=== PATIENT | female | born 2000 | race Caucasian/White ===

== ENCOUNTER → 2025-04-19 | Outpatient (CLI) | payer SELFPAY ==
[2025-04-19 13:42] LABS: Absolute Lymphocyte Count 1.46 X10^3/uL (0.83-4.51); Absolute Neutrophil Count 4.7 X10^3/uL (2.0-7.7); Basophil# 0.04 X10^3/uL; Basophil% 0.6 % (0-1); Eosinophil# 0.09 X10^3/uL; Eosinophils% 1.3 % (0-5); Hematocrit 31.6 % (37-47); Hemoglobin 9.1 g/dL (12.0-15.0); Lymphocyte # 1.46 X10^3/ul (0.83-4.51); Lymphocyte % 21.2 % (19-41); Mean Corp Hgb Conc 28.8 g/dL (32-36); Mean Corpuscular Hgb 18.7 pg (27.0-32.0); Mean Platelet Vol. 9.7 fl (6.2-12.0); Monocyte# 0.59 X10^3/uL; Monocyte% 8.6 % (0-10); NRBC Flagged by Analyzer 0 % (0-5); Neutrophil # 4.68 X10^3/uL (2.7-7.7); Platelet Count 292 K/mm3 (150-450); RBC Distribution Width CV 17.6 % (11.6-14.6); RBC Distribution Width SD 40.6 fl (35.1-43.9); Red Blood Count 4.86 M/mm3 (4.2-5.4); White Blood Count 6.9 K/mm3 (4.4-11.0)
[2025-04-20 12:03] LABS: ALB/GLOB Ratio 1.1 RATIO (0.9-2.4); AST(SGOT) 14 U/L (<=31); Alanine Aminotransfer ALT/SGPT 14 U/L (<=34); Albumin, Serum 4.4 g/dL (3.5-5.0); Alkaline Phosphatase 80 U/L (35-104); Anion Gap 13 (5-15); BUN 9 mg/dL (4-19); BUN/Creat Ratio 13.9 RATIO (10-20); Calcium,Total 9.5 mg/dL (7.6-11.0); Carbon Dioxide 20.9 mmol/L (21.0-32.0); Chloride 104 mmol/L (98-108); Creatinine, Serum 0.68 mg/dL (0.70-1.20); EST Glomerular Filtration Rate 124 (>60); Ferritin 4 ng/mL (22-378); Globulin 3.9 g/dL (2.2-4.2); Glucose 92 mg/dL (70-99); Magnesium 2.1 mg/dL (1.5-2.2); Potassium 4.4 mmol/L (3.3-5.1); Protein, Total 8.2 g/dL (5.9-8.4); Sodium Level 138 mmol/L (133-145); Vitamin B12 224 pg/mL (180-914); Vitamin D,25 Hydroxy 17.3 ng/mL (30-100)
[2025-04-21 15:08] LABS: Endomysial Antibody IgA Positive (Negative); Immunoglobulin A 387 mg/dL (87-352); t-Transglutaminase IgA 48 U/mL (0-3)
== END | disposition home or self-care (01) ==
LOC: LAB 13:02
PROVIDERS: PCP Family Medicine; Referring Provider Family Medicine; Visit Provider Family Medicine
DX: F32.9 Major depressive disorder, single episode, unspecified (principal); R14.0 Abdominal distension (gaseous); Z72.820 Sleep deprivation
CPT/HCPCS: 36415; 80053; 82306; 82607; 82728; 82784; 83516; 83735; 84443; 85025; 86255

== ENCOUNTER 2025-05-26 13:11 | Day surgery (SDC) | payer MEDICAID, SELFPAY ==
--- NOTE | 2025-05-25 12:59 | PAT.ANE_ITS ---
Pre-Assessment Diagnosis/Proposed Procedure Planned Operative Procedure(s): EGD Anesthesia History Anesthesia History - dispatcher street department: Anesthesia History - dispatcher street department Hx Hospitalization No 05/25/25 09:18 Any Problems With Anesthesia No 05/25/25 09:18 Cholinesterase deficiency No 05/25/25 09:18 You/Your Family Experience No 05/25/25 09:18 fever (hyperthermia) with Relationship Recent Exposure to Contagious Disease Does patient have nerve No 05/25/25 09:18 stimulator Patient instructed to have device shut off --Does patient have Pacemaker or ICD? When Was Last Pacemaker Check QUESTION #4 FULL TEXT: You/Your Family Experience fever (hyperthermia) with Anesthesia Last Oral Intake Last Oral intake: Last Oral Intake NPO since Meds taken in AM with sips of water? Meds patient instructed to take am of surgery PONV PONV - dispatcher street department: PONV - dispatcher street department Female Yes 05/25/25 09:18 HX of Motion Sickness No 05/25/25 09:18 HX of N/V After Surgery No 05/25/25 09:18 Non-Smoker Yes 05/25/25 09:18 Duration of Surgery greater No 05/25/25 09:18 than 60 minutes Number of Risk Factors 2 05/25/25 09:18 PONV Score Moderate Risk 05/25/25 09:18 Height & Weight Height & Weight: Anesthesia: Height & Weight Height 5 ft 4 in 05/24/25 14:07 Respiratory Assessment Respiratory Assessment - dispatcher street department: Respiratory Tract Infection Hx - dispatcher street department Hx Respiratory Tract Infection No 05/25/25 09:18 STOP Sleep Apnea STOP Sleep Apnea - dispatcher street department: STOP Sleep Apnea - dispatcher street department Hx Hypertension No 05/25/25 09:18 Hx Sleep Apnea No 05/25/25 09:18 CPAP BIPAP Do you snore loudly (louder No 05/25/25 09:18 than talking or can be heard Do you often feel tired/ No 05/25/25 09:18 fatigued/ sleepy during daytime? Has anyone observed you stop No 05/25/25 09:18 breathing during sleep? STOP Results Negative 05/25/25 09:18 QUESTION #5 FULL TEXT : Do you snore loudly (louder than talking or can be heard through closed doors)? 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 Specify any problems Hx of Preganancy in last 3 N/A 05/25/25 09:18 Months Nurse Filling Out Transfusion NBUCHER 05/25/25 09:18 & Questions: Date: 05/25/25 05/25/25 09:18 Time: 09:19 05/25/25 09:18 Patient unable to answer at this time (ie. confused, unrespo /Reproduction History /Reproductive History - dispatcher street department: /Reproductive Hx- dispatcher street department Hx Now No 05/25/25 09:18 Gestational Age (in weeks): EDC: Hx Hx Para Hx Section SAB No 05/25/25 09:18 PFS Medical History (Updated 05/25/25 @ 09:24 by Sarai Jon) Anxiety Dietary restriction Heartburn Non-smoker Emotional problems Broken arm Home Medications ?Medication ?Instructions ?Recorded ?Last Taken ?Type ascorbate calcium (vitamin C) 500 500 mg PO BID Unknown History mg tablet cholecalciferol (vitamin D3) 125 125 mcg PO QDAY 05/24 Unknown History mcg (5,000 unit) capsule (Dialyvite Vitamin D) ferrous sulfate 325 mg (65 mg 325 mg PO BID 05/24/25 U nknown History iron) tablet,delayed release omeprazole 20 mg capsule,delayed 20 mg PO QDAY 5 Unknown History release polyethylene glycol 3350 17 4 g PO ONCE PRN constipati on 05/24/25 Unknown History gram/dose oral powder (Miralax) sertraline 50 mg tablet 50 mg PO QDAY 05/24/25 Unkno wn History Allergy/AdvReac Type Severity Reaction Status Date / Time No Known Allergies Allergy Verified 05/25/25 09:16 Family History Father Arthritis Cancer Mother Depression Grandmother Diabetes Heart disease Uncle Diabetes Social History Smoking Status: Never smoker alcohol intake: never substance use type: does not use Recommendation Anesthesia Recommendation Anesthesia recommendation: OPTIMIZED for anesthesia (Hemoglobin from April 19, 2025 was 9.1. Patient has a history of anemia. This should be adequate for this surgery. If patient saturations are low or patient is short of breath they may consider redoing her hemoglobin.)
[2025-05-26] VITALS (7 sets, daily range): BP systolic 99–126; BP diastolic 60–84; PULSE 78–106; RESP 16–18; TEMP 36.1–37.3; O2SAT 97–100; BMI 29.1
[2025-05-26 13:48] LABS: Internal QC Validated? YES +Cl - CLEAR BKGD; Pregnancy, Urine Negative Negative
--- NOTE | 2025-05-26 13:56 | PCM.HP.STD ---
HPI - General General Date of Admission: 05/26/25 Date of Service: 05/26/25 Chief Complaint: Celiac disease HPI Narrative MALCOLM DIANA, is a 24 F who presents with the Chief Complaint: possible celiac disease LABS 04/21/2025 Total IgA 387 TTG IgA elevated at 48 Endomesial IgA positive Hemoglobin 9.1 Transaminases normal TSH normal B12 low normal at 224 Ferritin low 4 Vitamin D low 17.3 - Labs: TTG IgA elevated to 48 with a total IgA of 387, indicating celiac disease. - Labs: Anemia noted, vitamin D and B12 levels low. - she has been on a GFD for the past month - epigastric abdominal pain, sudden onset, thought this was stress related - diarrhea - denies any weight loss - denies any emesis - she c/o nausea since starting Fe - menstrual cycles regular - denies any night sweats - c/o fatigue - denies any skin rashes or lesions - reports her bowels alternate between diarrhea and abdominal pain - she is on Omeprazole 20mg once daily for past month and this has resolved the abdominal pain/HB - she started Vitamin D - Gastrointestinal: Reports intermittent abdominal pain, diarrhea, and constipation. Denies vomiting. - General: Reports fatigue. Denies night sweats. - Dermatological: Denies skin rashes or lesions. The patient is a 24-year-old female presenting with gastrointestinal symptoms and a suspected diagnosis of celiac disease. In early March, the patient experienced significant stress, leading to concerns about a possible ulcer due to anxiety and abdominal pain. The abdominal pain was localized and accompanied by diarrhea, which prompted a celiac panel test. The patient reports fluctuating bowel habits, including episodes of diarrhea and constipation. She has been on omeprazole for abdominal pain and heartburn, currently on her third course, which has provided some relief. The patient also reports nausea, attributed to iron supplementation, and has experienced weight fluctuations. The patient has a family history of celiac disease in extended relatives but not in immediate family members. She has been attempting a gluten-free diet but has not been strictly adhering to it due to pending diagnostic confirmation. The patient is anemic, with low vitamin D and B12 levels, consistent with malabsorption associated with celiac disease. Attestation: Documentation on this patient encounter was supported using ambient scribe technology/ voice AI technology. The patient consented to recording for the purpose of documenting the encounter. Provider reviewed content of the generated note prior to signature. [facility] Medical History Anxiety Dietary restriction Heartburn Non-smoker Emotional problems Broken arm Home Medications ?Medication ?Instructions ?Recorded ?Last Taken ?Type ascorbate calcium (vitamin C) 500 500 mg PO BID 05/24/25 05/24/25 History mg tablet cholecalciferol (vitamin D3) 125 125 mcg PO QDAY 05/24/25 05/25/25 History mcg (5,000 unit) capsule (Dialyvite Vitamin D) ferrous sulfate 325 mg (65 mg 325 mg PO BID 05/24/25 05/24/25 History iron) tablet,delayed release omeprazole 20 mg capsule,delayed 20 mg PO QDAY 05/24/25 05/26/25 History release polyethylene glycol 3350 17 4 g PO ONCE PRN constipation 05/24/25 Unknown History gram/dose oral powder (Miralax) sertraline 50 mg tablet 50 mg PO QDAY 05/24/25 05/25/25 History Allergy/AdvReac Type Severity Reaction Status Date / Time No Known Allergies Allergy Verified 05/26/25 13:47 Family History Father Arthritis Cancer Mother Depression Grandmother Diabetes Heart disease Uncle Diabetes Social History Smoking Status: Never smoker alcohol intake: never substance use type: does not use ROS Constitutional Constitutional: Denies fatigue, fever(s), poor appetite, weight gain or weight loss Gastrointestinal Gastrointestinal: Denies belching, bloating, change in bowel habits, change in stool character, chewing difficulty, coffee ground emesis, constipation, cramping, diarrhea, dyspepsia, dysphagia, early satiety, excessive flatus, fecal incontinence, heartburn, hematemesis, hematochezia, hemorrhoids, loose stools, melena, nausea, odynophagia, rectal bleeding, tenesmus, vomiting or weight changes Vital Signs Vital Signs Vital Signs: 05/26/25 13:48 05/26/25 13:48 Temperature 97.0 F L Temperature Source Temporal Pulse Rate 78 Respiratory Rate 18 Respiratory Pattern Normal Blood Pressure 126/84 H Blood Pressure Mean 98 Blood Pressure Source Monitor Blood Pressure Position Semi-Fowlers Blood Pressure Location Right Arm Pulse Ox 100 Oxygen Delivery Method Room Air Weight Weight: 169 lb 12.095 oz Body Mass Index (BMI) 29.1 Physical Exam Const alert, oriented x3, no apparent distress and healthy appearing General Appearance: cooperative GI normal to inspection, nondistended, normoactive bowel sounds, soft to palpation, non-tender and non-distended Percussion: normal to percussion Rectal Exam: deferred Results Lab / Micro Data Labs: Laboratory Results - last 24 hr 05/26/25 13:30: Urine Test Negative Assessment & Plan Assessment/Plan (1) Celiac disease: (2) Gastritis: (3) Anemia: PLAN: Thought Process: normal Assessment and Plan Assessment and Plan (1) Celiac disease: Status: Acute Comment: TTG IgA 48 - 3x ULN and consistent with celiac disease Plan: The patient is diagnosed with celiac disease based on elevated TTG IgA levels and symptoms of malabsorption. A gluten-free diet is recommended to manage symptoms and improve nutrient absorption. An upper endoscopy is planned to confirm the diagnosis through a duodenal biopsy. (2) Anemia: Status: Acute Plan: The anemia is likely secondary to malabsorption from celiac disease. Iron supplementation is being taken to address the anemia. (3) Vitamin D deficiency: Status: Acute Plan: The patient is advised to continue vitamin D supplementation to address the deficiency. The deficiency is likely due to malabsorption associated with celiac disease. Orders: Orders EGD 05/26/25 K90.0 - Celiac disease Plan The patient is a 24-year-old female with a history of gastrointestinal symptoms presenting with suspected celiac disease. The elevated TTG IgA and low vitamin levels suggest malabsorption consistent with celiac disease. The patient has been experiencing abdominal pain, diarrhea, and constipation, which are common symptoms of celiac disease. The anemia and vitamin deficiencies are likely due to malabsorption, a common complication of untreated celiac disease. The patient has been on omeprazole for heartburn and abdominal pain, which has provided some relief. A gluten-free diet is recommended to manage celiac disease and improve nutrient absorption. Patient Instructions: - Follow a gluten-free diet to manage celiac disease and improve nutrient absorption. - Continue taking vitamin D supplements as prescribed. - Schedule an upper endoscopy for further evaluation of celiac disease. - Monitor symptoms and report any significant changes to your healthcare provider.
[2025-05-26] MEDS: Lactated Ringers 1,000 ML 15 ML IV (13:57)
--- NOTE | 2025-05-26 14:15 | EGD_PTH ---
PATIENT: MALCOLM DIANA LOC: EN U#:[id number] AGE/SX: 24/F ROOM: RE05/26/[address]: Dr. Mau Nettles DO : 2000 BED: DIS: 05/26/2025 SPEC #: [id number] RECD: 05/26/25 15:39 STATUS: JOYCE GEORGIANA #: [id number] ELANA: 05/26/25 14:[address]: Mau Nettles DEPT: SURGICAL PATHOLOGY RECD BY: Praveen Segundo ENTERED: 05/26/25 15:54 SP TYPE: EGD BIOPSY KASHIF DR: Dr. Santos Farah MD Tissues: A - Duodenum, NOS B - Gastric mucous membrane Procedures: Immunohistochemical Stains Surgery Specimen Level IV HEADER OPERATION: EGD and biopsy PRE-OP DIAGNOSIS: Possible Celiac disease, anemia, gastritis TISSUE SUBMITTED: A- Duodenum biopsy, B- Gastric body biopsy MICROSCOPIC DIAGNOSIS A. Duodenum, biopsy: - Mild villous blunting with increased Intraepithelial lymphocytes - see note. Note: This pattern of injury is etiologically nonspecific and the differential diagnosis includes sensitivity to gluten and non-gluten proteins, small intestinal bacterial overgrowth, stasis related changes, infection, protein calorie malnutrition, tropical sprue, and medication injury (NSAIDs, Olmesartan / Benicar, Mycophenolic acid, Idelalisib, for example). If celiac disease is a clinical concern, additional clinical studies, such as tTG-IgA, are recommended. B. Gastric body, biopsy: - Chronic gastritis. - IHC negative for H.pylori organisms. MICROSCOPIC DESCRIPTION Slides are reviewed. All matched controls reacted appropriately. These tests were developed and their performance characteristics determined by [facility]. They may not have been cleared or approved by the [place]. Food and Drug Administration. The FDA has determined that such clearance or approval is not necessary. The above immunohistochemical/dualISH markers are viewed by the Pathologist. GROSS DESCRIPTION A. Received in fixative is one container labeled with the patient's name and designated Duodenum biopsy. The specimen consists of multiple irregular fragments of light gasca soft tissue that in aggregate measure 0.8 x 0.5 x 0.2 cm. The specimen is totally submitted in one cassette. B. Received in fixative is one container labeled with the patient's name and designated Gastric body biopsy. The specimen consists of one irregular fragment of light gasca soft tissue that measures 0.7 cm. The specimen is totally submitted in one cassette. [place]/mr 05/26/2025 CPT:84299q8,14050
--- NOTE | 2025-05-26 14:23 | PRE.ANES_ITS ---
ASA Classification* ASA Classification ASA Classification: 2 Assessment & Plan Anesthesia* Anesthesia Assessment Anesthesia Assessment: Discussed sedation and/or anesthesia options, risks, benefits, and alternatives with patient/parents/legal guardian/POA. Questions invited. The patient/parents/legal guardian/POA seems to understand and agrees to proceed with anesthesia plan. Reviewed the physical assessment, medical history, allergy history and patient home medications list prior to surgery/procedure/anesthetic and documented any changes. Performed airway and anesthesia risk assessments. Anesthesia Type Anesthesia Type: MAC History Source History Obtained from:: Patient and Chart Anesthesia Focused Assessment* Temperature: 97.0 F Pulse Rate: 78 Blood Pressure: 126/84 Respiratory Rate: 18 Pulse Ox: 100 Oxygen Delivery Method: Room Air Airway Assessment Mouth opens: >3 cm Mallampati Score: II Teeth Condition: Intact Neck Range of motion (ROM): Full ROM Labs Anesthesia Preop lab: CBC WBC 6.9 K/mm3 (4.4-11.0) 04/19/25 13:11 04/19/25 RBC 4.86 M/mm3 (4.2-5.4) 04/19/25 13:11 04/19/25 Hgb 9.1 g/dL (12.0-15.0) L 04/19/25 13:11 04/19/25 Hct 31.6 % (37-47) L 04/19/25 13:11 04/19/25 Plt Count 292 K/mm3 (150-450) 04/19/25 13:11 04/19/25 CHEMISTRY Potassium 4.4 mmol/L (3.3-5.1) 04/19/25 13:11 04/19/25 Sodium 138 mmol/L (133-145) 04/19/25 13:11 04/19/25 Magnesium 2.1 mg/dL (1.5-2.2) 04/19/25 13:11 04/19/25 BUN 9 mg/dL (4-19) 04/19/25 13:11 04/19/25 Creatinine 0.68 mg/dL (0.70-1.20) L 04/19/25 13:11 Glucose 92 mg/dL (70-99) 04/19/25 13:11 04/19/25 TSH 1.310 uIU/mL (0.300-4.200) 04/19/25 13:11 05/12/24 COAG Urine Test Negative Negative 05/26/25 13:30 05/26/25 Pre-Assessment Diagnosis/Proposed Procedure Planned Operative Procedure(s): EGD Anesthesia History Anesthesia History - bundles hanger: Anesthesia History - bundles hanger Hx Hospitalization No 05/25/25 09:18 Any Problems With Anesthesia No 05/25/25 09:18 Cholinesterase deficiency No 05/25/25 09:18 You/Your Family Experience No 05/25/25 09:18 fever (hyperthermia) with Relationship Recent Exposure to Contagious No 05/26/25 13:48 Disease Does patient have nerve No 05/25/25 09:18 stimulator Patient instructed to have device shut off --Does patient have Pacemaker No 05/26/25 13:48 or ICD? When Was Last Pacemaker Check QUESTION #4 FULL TEXT: You/Your Family Experience fever (hyperthermia) with Anesthesia Last Oral Intake Last Oral intake: Last Oral Intake NPO since 10:30 05/26/25 13:48 Meds taken in AM with sips of water? Meds patient instructed to take am of surgery Any additional information?: Yes NPO since: 10:30 (Patient water at 10:30 AM) Meds taken in AM with sips of water?: Yes Meds patient instructed to take am of surgery: Omeprazole PONV PONV - bundles hanger: PONV - bundles hanger Female Yes 05/25/25 09:18 HX of Motion Sickness No 05/25/25 09:18 HX of N/V After Surgery No 05/25/25 09:18 Non-Smoker Yes 05/25/25 09:18 Duration of Surgery greater No 05/25/25 09:18 than 60 minutes Number of Risk Factors 2 05/25/25 09:18 PONV Score Moderate Risk 05/25/25 09:18 Height & Weight Height & Weight: Anesthesia: Height & Weight Height 5 ft 4 in 05/26/25 13:48 Weight: 77 kg 05/26/25 13:48 Body Mass Index (BMI) 29.1 05/26/25 13:48 Respiratory Assessment Respiratory Assessment - bundles hanger: Respiratory Tract Infection Hx - bundles hanger Hx Respiratory Tract Infection No 05/25/25 09:18 STOP Sleep Apnea STOP Sleep Apnea - bundles hanger: STOP Sleep Apnea - bundles hanger Hx Hypertension No 05/25/25 09:18 Hx Sleep Apnea No 05/25/25 09:18 CPAP BIPAP Do you snore loudly (louder No 05/25/25 09:18 than talking or can be heard Do you often feel tired/ No 05/25/25 09:18 fatigued/ sleepy during daytime? Has anyone observed you stop No 05/25/25 09:18 breathing during sleep? STOP Results Negative 05/25/25 09:18 QUESTION #5 FULL TEXT : Do you snore loudly (louder than talking or can be heard through closed doors)? 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 Specify any problems Hx of Preganancy in last 3 N/A 05/25/25 09:18 Months Nurse Filling Out Transfusion NBUCHER 05/25/25 09:18 & Questions: Date: 05/25/25 05/25/25 09:18 Time: 09:19 05/25/25 09:18 Patient unable to answer at this time (ie. confused, unrespo /Reproduction History /Reproductive History - bundles hanger: /Reproductive Hx- bundles hanger Hx Now No 05/25/25 09:18 Gestational Age (in weeks): EDC: Hx Hx Para Hx Section SAB No 05/25/25 09:18 Active Medications Active Medications: Current Medications Generic Name Dose Route Start Last Admin Trade Name Freq PRN Reason Stop Dose Admin Lactated Ringer's 1,000 mls @ 15 mls/hr 05/26/25 13:30 05/26/25 13:57 IV 15 mls/hr .Q48H MICAELA Administration PFSH Medical History Anxiety Dietary restriction Heartburn Non-smoker Emotional problems Broken arm Home Medications ?Medication ?Instructions ?Recorded ?Last Taken ?Type ascorbate calcium (vitamin C) 500 500 mg PO BID 05/24/25 History mg tablet cholecalciferol (vitamin D3) 125 125 mcg PO QDAY 05/2405/25/25 History mcg (5,000 unit) capsule (Dialyvite Vitamin D) ferrous sulfate 325 mg (65 mg 325 mg PO BID 05/24/25 0 05/24/25 History iron) tablet,delayed release omeprazole 20 mg capsule,delayed 20 mg PO QDAY 5 05/26/25 History release polyethylene glycol 3350 17 4 g PO ONCE PRN constipati on 05/24/25 Unknown History gram/dose oral powder (Miralax) sertraline 50 mg tablet 50 mg PO QDAY 05/24/2505/25 History Allergy/AdvReac Type Severity Reaction Status Date / Time No Known Allergies Allergy Verified 05/26/25 13:47 Family History Father Arthritis Cancer Mother Depression Grandmother Diabetes Heart disease Uncle Diabetes Social History Smoking Status: Never smoker alcohol intake: never substance use type: does not use Review of Systems (Anesthesia) ROS Narrative System reviewed and no additional complaints, except as documented.
--- NOTE | 2025-05-26 15:04 | PCM.POST.ANE ---
Anesthesia: Postop Eval I Current Vital Signs Temperature: 99.2 F Pulse Rate: 106 Blood Pressure: 99/60 Respiratory Rate: 18 Pulse Ox: 97 Assessment Airway patent: Yes Spontaneous unlabored respirations: Yes nausea: No Vomiting: No Anesthesia Complication: No Fluid Hydration Crystalloid volume administer (ml): 500 Total IV fluid infused: 500 Progress Note Anesthesia document: Postop Eval 1 completed: Yes
--- NOTE | 2025-05-26 15:06 | OP.CCLET_ITS ---
05/26/2025 Santos Farha MD [address] [id number] Re : Upper GI endoscopy procedure for Cheli Billingsley Dear Dr. Farah This procedure was performed on Monday, May 26, 2025. My impressions and recommendations are as follows: Impressions : - Normal esophagus. - Small hiatal hernia. - Gastroparesis. - Duodenal mucosal changes seen, diagnostic of celiac disease. Biopsied. Recommendations : - Discharge patient to home. - Resume previous diet. - Continue present medications. - Await pathology results. My findings are described in the full procedure note, which is enclosed. If I can be of further assistance, please feel free to contact me at . Sincerely, Mau Nettles, 05/26/2025 3:05:23 PM This report has been signed electronically.
--- NOTE | 2025-05-26 15:06 | OP.EGD_ITS ---
Patient Name: Cheli Billingsley Procedure Date: 05/26/2025 2:42 PM Date of : 2000 Age: 24 Procedure: Upper GI endoscopy Indications: Follow-up of celiac disease, Positive celiac serologies Providers: Mau Nettles DO Referring MD: Santos Farah MD Medicines: Monitored Anesthesia Care Patient Profile: This is a 24 year old female. Refer to note in patient chart for documentation of history and physical. Patient has symptoms of chronic abdominal cramping, chronic epigastric abdominal pain, chronic dyspepsia and chronic nausea. Complications: No immediate complications. Procedure: Pre-Anesthesia Assessment: - Prior to the procedure, a History and Physical was performed, and patient medications and allergies were reviewed. The patient is competent. The risks and benefits of the procedure and the sedation options and risks were discussed with the patient. All questions were answered and informed consent was obtained. Patient identification and proposed procedure were verified by the physician in the pre-procedure area. Mental Status Examination: alert and oriented. Airway Examination: normal oropharyngeal airway and neck mobility. Respiratory Examination: clear to auscultation. CV Examination: normal. ASA Grade Assessment: II - A patient with mild systemic disease. After reviewing the risks and benefits, the patient was deemed in satisfactory condition to undergo the procedure. The anesthesia plan was to use monitored anesthesia care (MAC). Immediately prior to administration of medications, the patient was re-assessed for adequacy to receive sedatives. The heart rate, respiratory rate, oxygen saturations, blood pressure, adequacy of pulmonary ventilation, and response to care were monitored throughout the procedure. The physical status of the patient was re-assessed after the procedure. After obtaining informed consent, the endoscope was passed under direct vision. Throughout the procedure, the patient's blood pressure, pulse, and oxygen saturations were monitored continuously. The Endoscope was introduced through the mouth, and advanced to the third part of the duodenum. Small bowel enteroscopy was deemed necessary. The upper GI endoscopy was accomplished without difficulty. The patient tolerated the procedure well. Scope In: 2:54:45 PM Scope Out: 2:58:01 PM Total Procedure Duration Time 0 hours 3 minutes 16 seconds Findings: The examined esophagus was normal. A small hiatal hernia was present. Suspect gastroparesis due to patient symptoms and retained gastric contents. Decreased folds were found in the duodenal bulb, decreased folds were found in the first portion of the duodenum, decreased folds were found in the second portion of the duodenum, scalloped mucosa was found in the duodenal bulb, scalloped mucosa was found in the first portion of the duodenum and scalloped mucosa was found in the second portion of the duodenum. Biopsies were taken with a cold forceps for histology. Verification of patient identification for the specimen was done. Estimated blood loss was minimal. Impression: - Normal esophagus. - Small hiatal hernia. - Gastroparesis. - Duodenal mucosal changes seen, diagnostic of celiac disease. Biopsied. Recommendation: - Discharge patient to home. - Resume previous diet. - Continue present medications. - Await pathology results. Procedure Code(s): --- Professional --- 62733, Small intestinal endoscopy, enteroscopy beyond second portion of duodenum, not including ileum; with biopsy, single or multiple CPT copyright 2021 [employer]. All rights reserved. The codes documented in this report are preliminary and upon graphite pan drier tender review may be revised to meet current compliance requirements. Mau Nettles DO 05/26/2025 3:05:23 PM This report has been signed electronically. Number of Addenda: 0 Note Initiated On: 05/26/2025 2:42 PM
--- NOTE | 2025-05-29 10:26 | POSTOPAN2_ITS ---
Anesthesia Postop Eval I Sum Postop Eval Completion status Anesthesia document: Postop Eval 1 completed: Yes Anesthesia Postop Eval I Summary Anesthesia Postop Eval I Summary: Anesthesia Postop Eval I: Assessment Summary Airway patent Yes 05/26/25 15:04 AUXILIARY EQUIPMENT TENDER.[email or web address] Spontaneous unlabored Yes 05/26/25 15:04 AUXILIARY EQUIPMENT TENDER.CSIR respirations Mental status nausea No 05/26/25 15:04 AUXILIARY EQUIPMENT TENDER.CSIR Vomiting No 05/26/25 15:04 AUXILIARY EQUIPMENT TENDER.CSIR Anesthesia Postop Eval I: Fluid Summary Crystalloid volume administer 500 05/26/25 15:04 AUXILIARY EQUIPMENT TENDER.CSIR (ml) Colloids volume administered ( ml) Blood Product volume administered (ml) Total IV fluid infused 500 05/26/25 15:04 AUXILIARY EQUIPMENT TENDER.CSIR Anesthesia Postop Eval I: Summary Notes Anesthesia Complication No 05/26/25 15:04 AUXILIARY EQUIPMENT TENDER.CSIR Anesthesia Complication Comment: Post-operative progress note Anesthesia: Postop Eval II Evaluation Mental status: Awake and Calm Pain Level: 0 nausea: No Vomiting: No Complications Anesthesia Complication: No
--- NOTE | 2025-05-29 10:26 | PCM.POSTANE2 ---
Anesthesia Postop Eval I Sum Postop Eval Completion status Anesthesia document: Postop Eval 1 completed: Yes Anesthesia Postop Eval I Summary Anesthesia Postop Eval I Summary: Anesthesia Postop Eval I: Assessment Summary Airway patent Yes 05/26/25 15:04 HIDE [email or web address] Spontaneous unlabored Yes 05/26/25 15:04 HIDE [email or web address].CSIR respirations Mental status nausea No 05/26/25 15:04 HIDE [email or web address].CSIR Vomiting No 05/26/25 15:04 HIDE [email or web address] Anesthesia Postop Eval I: Fluid Summary Crystalloid volume administer 500 05/26/25 15:04 HIDE [email or web address].CSIR (ml) Colloids volume administered ( ml) Blood Product volume administered (ml) Total IV fluid infused 500 05/26/25 15:04 HIDE [email or web address].CSIR Anesthesia Postop Eval I: Summary Notes Anesthesia Complication No 05/26/25 15:04 HIDE [email or web address].CSIR Anesthesia Complication Comment: Post-operative progress note Anesthesia: Postop Eval II Evaluation Mental status: Awake and Calm Pain Level: 0 nausea: No Vomiting: No Complications Anesthesia Complication: No
== END 2025-05-26 15:58 | disposition home or self-care (01) ==
LOC: EN 13:13 → AC 13:24
PROVIDERS: Anesthesiology; PCP Family Medicine; Referring Provider Family Medicine; Visit Provider Internal Medicine Gastroenterology
PROC: 0DJ08ZZ Inspection of Upper Intestinal Tract, Via Natural or Artificial Opening Endoscopic (ICD-10-PCS; CPT 43235; principal; 2025-05-26 14:10)
DX: K90.0 Celiac disease (principal); K29.50 Unspecified chronic gastritis without bleeding; K31.84 Gastroparesis; K44.9 Diaphragmatic hernia without obstruction or gangrene; D64.89 Other specified anemias; E55.9 Vitamin D deficiency, unspecified; Z79.899 Other long term (current) drug therapy
CPT/HCPCS: 43239; 81025; 88305; 88342; J2405

== ENCOUNTER → 2025-11-20 | Outpatient (CLI) | payer BC, SELFPAY ==
[2025-11-20 17:05] LABS: Hematocrit 39.8 % (37-47); Hemoglobin 14.1 g/dL (12.0-15.0); Immature Granulocytes Count 0.020 X10^3/uL (0.0-0.0); Mean Corp Hgb Conc 35.4 g/dL (32-36); Mean Corpuscular Volume 86.5 fL (81-99); Mean Platelet Vol. 9.1 fl (6.2-12.0); NRBC Flagged by Analyzer 0 % (0-5); Platelet Count 211 K/mm3 (150-450); RBC Distribution Width CV 11.8 % (11.6-14.6); RBC Distribution Width SD 37.5 fl (35.1-43.9); Red Blood Count 4.60 M/mm3 (4.2-5.4); White Blood Count 6.6 K/mm3 (4.4-11.0)
[2025-11-20 18:33] LABS: Iron 43 ug/dL (50-170); Iron Binding Capacity,Total 290 ug/dL (250-450); Iron Binding Capacity,Unsat 247 ug/dL (228-428); Vitamin B12 238 pg/mL (180-914); Vitamin D,25 Hydroxy 53.6 ng/mL (30-100)
[2025-11-26 15:07] LABS: Vitamin A, Retinol 50.4 ug/dL (18.9-57.3)
== END | disposition home or self-care (01) ==
PROVIDERS: PCP Family Medicine; Referring Provider Nurse Practitioner Acute Care; Visit Provider Nurse Practitioner Acute Care
DX: D50.8 Other iron deficiency anemias (principal); E55.9 Vitamin D deficiency, unspecified; K90.0 Celiac disease
CPT/HCPCS: 36415; 82306; 82607; 83516; 83540; 83550; 84590; 85025